=== PATIENT | male | born 1950 | race African-American/Black ===

== ENCOUNTER 2018-07-30 15:01 | Emergency (ER) | payer MEDICAID ==
--- NOTE | 2018-07-30 15:38 | ER Document Report ---
ED Medical Screen (RME) - General Chief Complaint: Arm Pain Stated Complaint: POSSIBLE STROKE Time Seen by Provider: 07/30/18 15:31 Notes: Patient says that he has had aching in his left upper arm and shoulder for the past 5 days. He says he thinks he just rolled over in bed and it started hurting. He does not recall a fall or other injury to that area. Has never had it before. Chest or anywhere else. Someone told him that he "might be having a stroke". Patient denies any problems with his balance. No new problems with his vision, legally bang. Has not lost consciousness. Denies abdominal pains, chest pains, or any headache. Denies shortness of breath or difficulty breathing. Patient is on Plavix he says because of a leaky valve in his heart. He moise 4 stents placed in his coronary arteries in [place]. Hypertension. TRAVEL OUTSIDE OF THE [place] IN LAST 30 DAYS: No - Related Data Allergies/Adverse Reactions: No Known Allergies Allergy (Verified 07/30/18 15:09) Past Medical History - Social History Chew tobacco use (# tins/day): No Frequency of alcohol use: None Drug Abuse: None - Past Medical History Cardiac Medical History: Reports: Hx Coronary Artery Disease - stents x 4 in 2011, Hx Heart Attack - March 2014, Hx Hypercholesterolemia, Hx Hypertension Pulmonary Medical History: Denies: Hx Asthma, Hx Bronchitis, Hx COPD, Hx Pneumonia Neurological Medical History: Denies: Hx Cerebrovascular Accident, Hx Seizures Renal/ Medical History: Denies: Hx Peritoneal Dialysis GI Medical History: Reports: Hx Gastroesophageal Reflux Disease Musculoskeltal Medical History: Reports Hx Arthritis, Reports Hx Musculoskeletal Deformity, Reports Hx Musculoskeletal Trauma Past Surgical History: Reports: Hx Appendectomy, Hx Cardiac Surgery - stent placement 2014 - Immunizations Hx Diphtheria, Pertussis, Tetanus Vaccination: No Physical Exam - Vital signs Vitals: Temp Pulse Resp BP Pulse Ox 98.6 F 72 16 171/54 H 97 07/30/18 15:09 07/30/18 15:09 07/30/18 15:09 07/30/18 15:09 07/30/18 15:09 Course - Vital Signs Vital signs: Temp Pulse Resp BP Pulse Ox 98.6 F 72 16 171/54 H 97 07/30/18 15:09 07/30/18 15:09 07/30/18 15:09 07/30/18 15:09 07/30/18 15:09 - Laboratory Result Diagrams: 07/30/18 15:58 07/30/18 15:58 Laboratory results interpreted by me: 07/30/18 15:58 Hgb 13.4 L MCH 26.0 L RDW 16.1 H Doctor's Discharge - Discharge Referrals: SILVINO VEGA MD [Primary Care Provider] - Follow up as needed
[2018-07-30 16:24] LABS: ABSOLUTE BASOPHILS # (AUTO) 0.1 10^3/uL (0.0-0.2); ABSOLUTE EOSINOPHILS # (AUTO) 0.1 10^3/uL (0.0-0.6); ABSOLUTE MONOCYTES (AUTO) 0.4 10^3/uL (0.1-1.4); ABSOLUTE NEUT (AUTO) 2.5 10^3/uL (1.7-8.2); BASOPHILS % (AUTO) 1.2 % (0-2); EOSINOPHILS % (AUTO) 2.6 % (0-6); HEMATOCRIT 41.9 % (37.9-51.0); HEMOGLOBIN 13.4 g/dL (13.5-17.0); LYMPHOCYTES % (AUTO) 38.8 % (13-45); MEAN CORPUSCULAR HGB CONC 32.1 g/dL (32.0-36.0); MEAN CORPUSCULAR VOLUME 81 fl (80-97); MONOCYTES % (AUTO) 8.2 % (3-13); PLATELET COUNT 181 10^3/uL (150-450); RED BLOOD COUNT 5.16 10^6/uL (4.35-5.55); RED CELL DISTRIBUTION WIDTH 16.1 % (11.5-14.0); SEGMENTED NEUTROPHILS % (AUTO) 49.2 % (42-78); TOTAL CELLS COUNTED % (AUTO) 100 %
[2018-07-30 16:25] LABS: APPEARANCE,URINE CLEAR; BILIRUBIN,URINE NEGATIVE (NEGATIVE); COLOR,URINE STRAW; GLUCOSE, URINE NEGATIVE (NEGATIVE); KETONES,URINE NEGATIVE (NEGATIVE); LEUKOCYTE ESTERASE,URINE NEGATIVE (NEGATIVE); NITRITE,URINE NEGATIVE (NEGATIVE); PROTEIN,URINE NEGATIVE (NEGATIVE); URINE SPECIFIC GRAVITY 1.003; UROBILINOGEN,URINE NEGATIVE mg/dL (<2.0)
--- NOTE | 2018-07-30 16:29 | RADIOLOGY REPORT (SQ) ---
EXAM DESCRIPTION: SHOULDER LEFT 2 OR MORE VIEWS COMPLETED DATE/TIME: 07/30/2018 4:20 pm REASON FOR STUDY: Left shoulder pain. COMPARISON: None. NUMBER OF VIEWS: Three views. TECHNIQUE: Internal rotation, external rotation, and Y view images acquired of the left shoulder. LIMITATIONS: None. FINDINGS: MINERALIZATION: Normal. BONES: No acute fracture or dislocation. No worrisome bone lesions. JOINTS: No dislocation. Moderate degenerative changes AC joint. VISUALIZED LUNGS AND RIBS: No pneumothorax. No rib fracture. SOFT TISSUES: No radiopaque foreign body. OTHER: No other significant finding. IMPRESSION: AC joint arthropathy. No acute findings. TECHNICAL DOCUMENTATION: JOB ID: [id number] [employer]- All Rights Reserved Reading location - IP/workstation name: [email or web address]
--- NOTE | 2018-07-30 16:30 | RADIOLOGY REPORT (SQ) ---
EXAM DESCRIPTION: CHEST 2 VIEWS COMPLETED DATE/TIME: 07/30/2018 4:20 pm REASON FOR STUDY: Left shoulder pain COMPARISON: None. TECHNIQUE: Frontal and lateral radiographic views of the chest acquired. NUMBER OF VIEWS: Two view. LIMITATIONS: None. FINDINGS: LUNGS AND PLEURA: No opacities, masses or pneumothorax. No pleural effusion. MEDIASTINUM AND HILAR STRUCTURES: No masses or contour abnormalities. HEART AND VASCULAR STRUCTURES: Heart normal size. No evidence for failure. BONES: No acute findings. HARDWARE: None in the chest. OTHER: No other significant finding. IMPRESSION: NO SIGNIFICANT RADIOGRAPHIC FINDING IN THE CHEST. TECHNICAL DOCUMENTATION: JOB ID: [id number] [employer]- All Rights Reserved Reading location - IP/workstation name: [email or web address]
[2018-07-30 16:41] LABS: ALANINE AMINOTRANSFERASE 24 U/L (21-72); ALBUMIN 4.1 g/dL (3.5-5.0); ALKALINE PHOSPHATASE 123 U/L (38-126); ANION GAP 10 (5-19); ASPARTATE AMINO TRANSFERASE 25 U/L (17-59); BILIRUBIN,DIRECT 0.3 mg/dL (0.0-0.4); BILIRUBIN,TOTAL 0.6 mg/dL (0.2-1.3); BLOOD UREA NITROGEN 13 mg/dL (7-20); CALCIUM 9.2 mg/dL (8.4-10.2); CARBON DIOXIDE 27 mmol/L (22-30); CHLORIDE 102 mmol/L (98-107); GLUCOSE 90 mg/dL (75-110); LIPASE 247.8 U/L (23-300); POTASSIUM 4.2 mmol/L (3.6-5.0); SODIUM 138.7 mmol/L (137-145); TOTAL PROTEIN 7.5 g/dL (6.3-8.2)
[2018-07-30 16:52] LABS: CREATINE KINASE MB 0.49 ng/mL (<4.55); TROPONIN I 0.021 ng/mL
[2018-07-30] MEDS ORDERED: ACETAMINOPHEN 325 MG TABLET PO ONE (17:15)
--- NOTE | 2018-07-30 17:19 | ER Document Report ---
ED Extremity Problem, Upper - General Chief Complaint: Arm Pain Stated Complaint: POSSIBLE STROKE Time Seen by Provider: 07/30/18 15:31 Mode of Arrival: Ambulatory Information source: Patient Notes: 68-year-old male presents to ED for complaint of left arm pain for the last 6 days. He states that it moves every time he moves his arm. It is very achy. There is no shortness there is no chest pain there is no shortness of breath there is no pain anywhere except for in the left shoulder. He states he does not remember any falls any injuries or anything that would have made this pain. He states he has never had this pain before. He states he thinks he just rolled over in bed one night and the next morning it started hurting. 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 He states his vision is very cloudy and he does not see very much anymore. He states he has everything set in his house so he can get around good and no one moves stuff. He states he also has a home health aide that comes and fixes his food. TRAVEL OUTSIDE OF THE [place] IN LAST 30 DAYS: No - HPI Patient complains to provider of: Left, Shoulder Onset: Other Recent injury: No - 6 days Quality of pain: Achy Severity of pain: Moderate Pain Level: 3 Associated symptoms: None Exacerbated by: Movement, Exertion Relieved by: Nothing Similar symptoms previously: No - Not before the last 6 days Recently seen / treated by doctor: No - Related Data Allergies/Adverse Reactions: No Known Allergies Allergy (Verified 07/30/18 15:09) Past Medical History - General Information source: Patient - Social History Smoking Status: Former Smoker - States he stopped 6 years ago when he had an DE Cigarette use (# per day): No Chew tobacco use (# tins/day): No Smoking Education Provided: No Frequency of alcohol use: None - None in 6 years after having an DE Drug Abuse: None - None in 6 years Lives with: Alone Family History: Reviewed & Not Pertinent Patient has suicidal ideation: No Patient has homicidal ideation: No - Past Medical History Cardiac Medical History: Reports: Hx Coronary Artery Disease - stents x 4 in 2011, Hx Heart Attack - March 2014, Hx Hypercholesterolemia, Hx Hypertension Pulmonary Medical History: Reports: None EENT Medical History: Reports: Eyes Neurological Medical History: Reports: None Endocrine Medical History: Reports: None Renal/ Medical History: Reports: None Malignancy Medical History: Reports None GI Medical History: Reports: Hx Gastroesophageal Reflux Disease Musculoskeletal Medical History: Reports Hx Arthritis, Reports Hx Mus culoskeletal Deformity, Reports Hx Musculoskeletal Trauma Skin Medical History: Reports None Psychiatric Medical History: Reports: None Traumatic Medical History: Reports: Hx Fractures Infectious Medical History: Reports: None Past Surgical History: Reports: Hx Appendectomy, Hx Cardiac Surgery - stent placement 2013, Hx Coronary Stent, Hx Orthopedic Surgery - ORIF right arm using bone donor from hip - Immunizations Hx Diphtheria, Pertussis, Tetanus Vaccination: No Review of Systems - Review of Systems Constitutional: No symptoms reported EENT: No symptoms reported Cardiovascular: denies: Chest pain, Palpitations, Heart racing, Dizziness, Lightheaded Respiratory: No symptoms reported Gastrointestinal: No symptoms reported Genitourinary: No symptoms reported Male Genitourinary: No symptoms reported Musculoskeletal: Joint pain - Left shoulder. denies: Joint swelling, Muscle pain, Muscle stiffness, Neck pain, Deformity Skin: No symptoms reported Hematologic/Lymphatic: No symptoms reported Neurological/Psychological: No symptoms reported -: Yes All other systems reviewed and negative Physical Exam - Vital signs Vitals: Temp Pulse Resp BP Pulse Ox 98.6 F 72 16 171/54 H 97 07/30/18 15:09 07/30/18 15:09 07/30/18 15:09 07/30/18 15:09 07/30/18 15:09 Interpretation: Normal - General General appearance: Appears well, Alert - HEENT Head: Normocephalic, Atraumatic Eyes: Normal Pupils: PERRL - Respiratory Respiratory status: No respiratory distress Chest status: Nontender Breath sounds: Normal Chest palpation: Normal - Cardiovascular Rhythm: Regular Heart sounds: Normal auscultation Murmur: No - Abdominal Inspection: Normal Distension: No distension Bowel sounds: Normal Tenderness: Nontender Organomegaly: No organomegaly - Back Back: Normal, Nontender - Extremities General upper extremity: Normal inspection, Normal color, Normal ROM, Normal temperature General lower extremity: Normal inspection, Nontender, Normal color, Normal ROM, Normal temperature, Normal weight bearing. No: Tarun's sign Shoulder: Tender - Left shoulder. No: Abrasion, Deformity, Dislocation, Ecchymosis - but has full range of motion, Instability, Laceration, Limited ROM - Pain with range of motion to left shoulder - Neurological Neuro grossly intact: Yes Cognition: Normal Orientation: AAOx4 [place] Coma Scale Eye Opening: Spontaneous [place] Coma Scale Verbal: Oriented [place] Coma Scale Motor: Obeys Commands [place] Coma Scale Total: 15 Speech: Normal Motor strength normal: LUE, RUE, LLE, RLE Sensory: Normal - Psychological Associated symptoms: Normal affect, Normal mood - Skin Skin Temperature: Warm Skin Moisture: Dry Skin Color: Normal Course - Re-evaluation Re-evalutation: 07/30/18 19:26 Discussed history and exam with Dr. Mansfield. Patient has repeat producible pain to the left shoulder. Patient will be discharged home. Position. Family was encouraged to use Tylenol and Aspercreme for his pain. Patient was discharged home with his friend. - Vital Signs Vital signs: Temp Pulse Resp BP Pulse Ox 98.6 F 77 14 155/61 H 99 07/30/18 17:33 07/30/18 17:33 07/30/18 17:33 07/30/18 17:33 07/30/18 17:33 - Laboratory Result Diagrams: 07/30/18 15:58 07/30/18 15:58 Laboratory results interpreted by me: 07/30/18 15:58 Hgb 13.4 L MCH 26.0 L RDW 16.1 H - Diagnostic Test Radiology reviewed: Image reviewed, Reports reviewed - EKG Interpretation by Me When compared to previous EKG there are: No significant change Discharge - Discharge Clinical Impression: AC joint arthropathy Left shoulder pain Qualifiers: Chronicity: unspecified Qualified Code(s): M25.512 - Pain in left shoulder Condition: Stable Disposition: HOME, SELF-CARE Additional Instructions: Arthritis Your symptoms are due to arthritis. Arthritis is an inflammation of the joints. There are many types -- osteoarthritis (due to "wear and tear"), auto- immmune arthritis (such as rheumatoid, lupus, Laura's, and others), and crystal-induced arthritis (such as gout and pseudogout). The physician's examination, combined with laboratory tests, will determine the cause of your arthritis. All types of arthritis are treated with antiinflammatory medications. Other medication may be required for special types of arthritis, or if your problem does not respond to the antiinflammatory medicine. Local warmth may be helpful. Move the involved joints through the full range of motion daily. Mild exercise is usually still possible for most persons with arthritis (ask your physician). Swimming provides good exercise without damaging the joints. Contact the physician if you are worsening in any way. Acetaminophen Acetaminophen may be taken for pain relief or fever control. It's much safer than aspirin, offering a wider range of "safe" dosages. It is safe during . Some brand names are Tylenol, Panadol, Datril, Anacin 3, Tempra, and Liquiprin. Acetaminophen can be repeated every four hours. The following are maximum recommended dosages: WEIGHT Dose Drops Elixir Chewable(80 mg) (LBS.) drprs=droppers tsp=teaspoon 6 40 mg .4 ml (1/2) 6-11 80 mg .8 ml (full) 1/2 tsp 1 tab 12-16 120 mg 1 1/2 drprs 3/4 tsp 1 1/2 tabs 17-23 160 mg 2 drprs 1 tsp 2 tabs 24-30 240 mg 3 drprs 1 1/2 tsp 3 tabs 30-35 320 mg 2 tsp 4 tabs 36-41 360 mg 2 1/4 tsp 4 1/2 tabs 42-47 400 mg 2 1/2 tsp 5 tabs 48-53 480 mg 3 tsp 6 tabs 54-59 520 mg 3 1/4 tsp 6 1/2 tabs 60-64 560 mg 3 1/2 tsp 7 tabs 65-70 600 mg 3 3/4 tsp 7 1/2 tabs 71-76 640 mg 4 tsp 8 tabs 77-82 720 mg 4 1/2 tsp 9 tabs 83-88 800 mg 5 tsp 10 tabs >89 pounds or adults 650 mg to 900 mg Acetaminophen can be repeated every four hours. Maximum daily dose not to exceed 4000 mg. These maximum recommended dosages are slightly higher than the dosages written on the product container, but these dosages are very safe and well below the toxic dosage for acetaminophen. FOLLOW-UP CARE: If you have been referred to a physician for follow-up care, call the physicians office for an appointment as you were instructed or within the next two days. If you experience worsening or a significant change in your symptoms, notify the physician immediately or return to the Emergency Department at any time for re-evaluation. Forms: Elevated Blood Pressure Referrals: SILVINO VEGA MD [Primary Care Provider] - Follow up as needed
[2018-07-30 17:35] VITALS: BP 155/61
--- NOTE | 2018-07-31 12:55 | EKG REPORT ---
SEVERITY:- ABNORMAL ECG - SINUS RHYTHM LVH WITH SECONDARY REPOLARIZATION ABNORMALITY ANTERIOR ST ELEVATION, PROBABLY DUE TO LVH : Confirmed by: Sebastien Wilkinson 31-Jul-2018 12:53:54
== END 2018-07-30 17:35 | disposition home or self-care (01) ==
LOC: ER 15:01
DX: M19.012 Primary osteoarthritis, left shoulder (principal); M79.602 Pain in left arm; I25.10 Atherosclerotic heart disease of native coronary artery without angina pectoris; I25.2 Old myocardial infarction; E78.00 Pure hypercholesterolemia, unspecified; I10 Essential (primary) hypertension
CPT/HCPCS: 93005; 99284; 36415; 82553; 83690; 85025; 80053; 81001; 84484; 71046; 73030; 93010; J3490

== ENCOUNTER 2018-09-28 05:54 | Day surgery (SDC) | payer MEDICAID, MEDICARE ==
[~2018-09-28 05:54] MED LIST: ASPIRIN 325 MG TABLET PO PRN; DIAZEPAM 5 MG TABLET PO PRN; DIPHENHYDRAMINE HCL 50 MG CAPSULE PO PRN; VERAPAMIL HCL 5 MG, LIDOCAINE HCL/PF 4 ML, NORMAL SALINE 12 ML, NITROGLYCERIN/D5W 0.4 M... IV PRN
[2018-09-28] MEDS ORDERED: LIDOCAINE 1% INJ-PF (10 MG/ML) 30 ML SDV ONE (07:36)
[2018-09-28] MEDS ORDERED: HEPARIN SODIUM,PORCINE/NS/PF 2,000 UNIT/1,000 ML RTUINJ IV ONE (07:36)
[2018-09-28] MEDS ORDERED: DIPHENHYDRAMINE HCL 25 MG CAPSULE ONE (07:39)
[2018-09-28] MEDS ORDERED: DIAZEPAM 5 MG TABLET ONE (07:40)
[2018-09-28] MEDS ORDERED: MIDAZOLAM 2 MG/2 ML INJ ONE (07:52)
[2018-09-28] MEDS ORDERED: HEPARIN SOD (PORCINE) 1,000 UNIT/ML 10 ML VIAL ONE (07:53)
[2018-09-28] MEDS ORDERED: FENTANYL CITRATE INJ/PF 100 MCG/2 ML AMPUL ONE (07:53)
[2018-09-28] MEDS ORDERED: DIPHENHYDRAMINE HCL 50 MG/ML VIAL ONE (08:43)
--- NOTE | 2018-09-28 09:55 | Operative Report ---
Operative Report DATE OF SURGERY: 09/28/18 PREOPERATIVE DIAGNOSIS: Angina pectoris abnormal stress test with ischemia in t he right coronary artery distribution POSTOPERATIVE DIAGNOSIS: Multivessel coronary disease OPERATION: Left heart catheterization coronary angiography and left ventriculography SURGEON: FADUMO DILL ANESTHESIA: Moderate Sedation COMPLICATIONS: None PROCEDURE: After informed consent was obtained the patient was brought to the cardiac catheterization lab and the right wrist was prepared in usual sterile and draped manner. Hemodynamic access was gained using micropuncture technique and the patient was anticoagulated with heparin. An intra-arterial cocktail of verapamil and lidocaine was administered. Selective coronary angiography was performed with a [place] catheter. This was exchanged with pigtail catheter and left ventriculography was performed in standard DESAI projection. The patient left the Cardiac Catheterization Lab in stable condition, with intact distal pulses and no chest pain or other complications from the procedure. Conscious sedation was initiated, monitored, and maintained during the procedure with the start time of [841] and a completion time of [934] for a total procedure time of [53 minutes]. A total of [1.5] milligrams of Versed and [75] milligrams and fentanyl were used for conscious sedation. HEMODYNAMIC DATA: [Aortic pressure at the beginning the case is 118/49 post ventriculography LV pressure is 165/11 aortic pressure on pullback is 140/73 with a mild gradient across the aortic valve there was no difficulty crossing the aortic valve with a pigtail catheter and J-wire] CORONARY ANATOMY: [ Left main has a distal 20-30% stenosis Right coronary artery: The RCA has a stent implants in the midportion of the vessel this is completely occluded with jump right to right collaterals LAD the LAD has a stent implant in the proximal portion that appears widely patent the LAD itself is a transapical vessel and large caliber vessel and appears normal there are left to right collaterals from the septal cascade and apical portion Circumflex coronary: The circumflex is a relatively small first obtuse marginal there is a stent implant in the second obtuse marginal that is completely occluded the ongoing AV groove circumflex supplies a moderate-sized posterolateral branch which is widely patent] VENTRICULOGRAPHY: Ventriculography is performed in the DESAI projection and demonstrates [preserved global left ventricular function with mild inferior hypokinesis ejection fraction appears to be in the 60% range mitral regurgitation is not present the ascending aortic root is normal] . IMPRESSION: [ 1. Normal intracardiac pressures 2. Preserved left ventricular function 3. Mild gradient across the aortic valve 4. Complete occlusion of the stent in the right coronary artery and second obtuse marginal branches 5. No other critical stenoses are seen Conclusion: In the absence of significant angina pectoris it would appear that medical therapy and risk factor modification is the best option for this patient final determination of the patient's status and condition will be made by Dr. Chow]
[2018-09-28 13:10] VITALS: BP 143/60
== END 2018-09-28 12:50 | disposition home or self-care (01) ==
LOC: CCL 05:54
PROVIDERS: ATTEND Internal Medicine Cardiovascular Disease
DX: I25.119 Atherosclerotic heart disease of native coronary artery with unspecified angina pectoris (principal); R94.31 Abnormal electrocardiogram [ECG] [EKG]; Z98.61 Coronary angioplasty status; I35.1 Nonrheumatic aortic (valve) insufficiency; I25.2 Old myocardial infarction; E78.49 Other hyperlipidemia; I10 Essential (primary) hypertension; I34.0 Nonrheumatic mitral (valve) insufficiency; M25.512 Pain in left shoulder; R94.30 Abnormal result of cardiovascular function study, unspecified; Z79.02 Long term (current) use of antithrombotics/antiplatelets; Z79.82 Long term (current) use of aspirin; Z79.1 Long term (current) use of non-steroidal anti-inflammatories (NSAID); Z87.891 Personal history of nicotine dependence
CPT/HCPCS: 93458; J2250; J1200; J3010; J1644 ×2; J3490 ×5